=== PATIENT | male | born 1975 | race Caucasian/White ===

== ENCOUNTER 2024-02-13 07:58 | Emergency (ER) | payer MEDICAID, MEDICARE ==
[~2024-02-13] VITALS: Ht 182.9 cm; Wt 99.8 kg
[2024-02-13 07:58] VITALS: BP 141/57; PULSE 69; RESP 16; TEMP 98.6; O2SAT 94
[2024-02-13] MEDS ORDERED: LIDODERM TP ONE (08:18)
[2024-02-13] MEDS ORDERED: ROBAXIN ONE (08:18)
[2024-02-13] MEDS ORDERED: TORADOL ONE (08:19)
[2024-02-13] MEDS: ROBAXIN PO STA (08:34)
[2024-02-13] MEDS: LIDODERM TP STA (08:34)
[2024-02-13] MEDS: TORADOL IM STA (08:35)
[2024-02-13 08:48] VITALS: BP 119/74; PULSE 59; RESP 16; TEMP 98.6; O2SAT 94
[2024-02-13 09:41] VITALS: BP 129/85; PULSE 66; RESP 16; TEMP 98.6; O2SAT 94
[2024-02-13] MEDS ORDERED: METH-621 PO (09:42)
[2024-02-13] MEDS ORDERED: KETO10TA PO (09:42)
[2024-02-13] MEDS ORDERED: LIDO700A19 TP (09:42)
== END 2024-02-13 09:43 | disposition home or self-care (01) ==
LOC: ER 07:58
DX: M54.50 Low back pain, unspecified (principal)
CPT/HCPCS: 99283; 96372; 72100; J2800; J1885